=== PATIENT | female | born 1945 | race American Indian/Alaskan Native ===

== ENCOUNTER 2018-02-02 12:14 | Inpatient (IN) | payer MEDICARE ==
[2018-02-02] MEDS ORDERED: ASPIRIN PO ONE (15:20)
[2018-02-02 15:39] LABS: Basophils % (Auto) 0.6 % (0.0-1.8); Eosinophils # (Auto) 0.1 K/mm3 (0.0-0.4); Eosinophils % (Auto) 2.3 % (0.0-4.3); Hematocrit 38.9 % (30.3-42.9); Hemoglobin 12.6 gm/dl (10.1-14.3); Lymphocytes # (Auto) 0.8 K/mm3 (1.2-5.4); Lymphocytes % (Auto) 16.6 % (13.4-35.0); Mean Corpuscular HGB Conc 33 % (30-34); Mean Corpuscular Hemoglobin 27 pg (28-32); Mean Corpuscular Volume 83 fl (79-97); Monocytes # (Auto) 0.7 K/mm3 (0.0-0.8); Monocytes % (Auto) 14.6 % (0.0-7.3); Platelet Count 231 K/mm3 (140-440); Red Blood Count 4.67 M/mm3 (3.65-5.03); Red Cell Distribution Width 14.9 % (13.2-15.2)
[2018-02-02 15:47] LABS: INR 1.06 (0.87-1.13)
[2018-02-02 15:48] LABS: BUN/Creatinine Ratio 11; Blood Urea Nitrogen 10 mg/dL (7-17); Calcium 8.8 mg/dL (8.4-10.2); Hemolysis Index 6; Partial Thromboplastin Time 31.4 Sec. (24.2-36.6)
--- NOTE | 2018-02-02 16:05 | History and Physical Report ---
History of Present Illness Chief complaint: My chest hurts History of present illness: 72 YO Female with DM, HTN, OA, Mitral Valve Prolapse presents to ED for evaluation. Pt states that she has experienced pain in her chest for the past 3 days with persistent symptoms over the same time frame. Pt states that pain in 4 -6/10, substernal, nonradiating, worse with exertion, relieved with rest, associated with shortness of breath. Pt denies fever, chills, palpitations, NVD , Syncope, unilateral leg swelling, calf pain, BRBPR, productive cough, unintentional weight loss, night sweats. Pt seen and evaluated in ED and found to have Angina and symptoms consistent with Diastolic CHF. Pt admitted to telemetry. Cardiology consulted in ED. Past History Past Medical History: arthritis, diabetes, hypertension Past Surgical History: appendectomy Social history: single Family history: diabetes, hypertension Medications and Allergies Allergies Allergy/AdvReac Type Severity Reaction Status Date / Time cefuroxime [From Ceftin] Allergy Unknown Verified 02/02/18 12:48 meloxicam Allergy Unknown Verified 02/02/18 12:48 Home Medications Medication Instructions Recorded Confirmed Last Taken Type Amitriptyline [Elavil] 10 mg PO QHS 02/02/18 02/02/18 02/02/18 History Ascorbic Acid [Vitamin C] 1,000 mg PO DAILY 02/02/18 02/02/18 02/02/18 History Aspirin [Adult Low Dose Aspirin EC] 81 mg PO DAILY 02/02/18 02/02/18 02/02/18 History Calcium Carbonate/Vitamin D3 1 each PO BID 02/02/18 02/02/18 02/02/18 History [Caltrate 600 + D Soft Chew Tab] Folic Acid [Folvite] 1 mg PO QDAY 02/02/18 02/02/18 02/02/18 History Methotrexate(Dose Weekly Only) 2.5 mg PO QWEEK 02/02/18 02/02/18 02/02/18 History Multivitamin [Multiple Vitamins] 1 each PO DAILY 02/02/18 02/02/18 02/02/18 History Simvastatin [Zocor TAB] 10 mg PO QHS 02/02/18 02/02/18 02/02/18 History Verapamil HCl [Verapamil ER] 120 mg PO DAILY 02/02/18 02/02/18 02/02/18 History metFORMIN [Glucophage] 500 mg PO QDAY 02/02/18 02/02/18 02/02/18 History Review of Systems Constitutional: no weight loss, no weight gain, no fever, no chills Ears, nose, mouth and throat: no ear pain, no ear discharge, no tinnitis, no decreased hearing, no nose pain, no nasal congestion Breasts: no change in shape, no swelling, no mass Cardiovascular: chest pain, shortness of breath, no orthopnea, no dyspnea on exertion, no paroxysmal nocturnal dyspnea Respiratory: no cough, no cough with sputum, no excessive sputum, no hemoptysis , no shortness of breath Gastrointestinal: no abdominal pain, no nausea, no vomiting, no diarrhea, no constipation Genitourinary Female: no pelvic pain, no flank pain, no menorrhagia, no dysuria , no urinary frequency, no urgency Rectal: no pain, no incontinence, no bleeding Musculoskeletal: no neck stiffness, no neck pain, no shooting arm pain, no arm numbness/tingling, no low back pain, no shooting leg pain Integumentary: no rash, no pruritis, no redness, no sores, no wounds, no jaundice Neurological: no head injury, no transient paralysis, no paralysis, no weakness , no parathesias, no numbness, no tingling Psychiatric: no anxiety, no memory loss, no change in sleep habits, no sleep disturbances, no insomnia, no hypersomnia, no change in appetite Endocrine: no cold intolerance, no heat intolerance, no polyphagia, no excessive thirst, no polydipsia, no polyuria Hematologic/Lymphatic: no easy bruising, no easy bleeding, no lymphadenopathy, no lymphedema Allergic/Immunologic: no urticaria, no allergic rhinitis, no wheezing, no persistent infections, no anaphylaxis Exam - Constitutional Vitals: Temp Pulse Resp BP Pulse Ox 99.2 F 111 H 18 120/80 96 02/02/18 12:44 02/02/18 12:44 02/02/18 12:44 02/02/18 12:44 02/02/18 12:44 General appearance: Present: mild distress - EENT Eyes: Present: PERRL ENT: hearing intact, clear oral mucosa - Neck Neck: Present: supple, normal ROM - Respiratory Respiratory effort: normal Respiratory: bilateral: diminished - Cardiovascular Heart Sounds: Present: S1 & S2. Absent: rub, click - Extremities Extremities: pulses symmetrical, No edema Extremity abnormal: edema Peripheral Pulses: within normal limits - Abdominal General gastrointestinal: Present: soft, non-tender, non-distended, normal bowel sounds Female genitourinary: Present: normal - Integumentary Integumentary: Present: clear, warm, dry - Musculoskeletal Musculoskeletal: gait normal, strength equal bilaterally - Psychiatric Psychiatric: appropriate mood/affect, intact judgment & insight - Neurologic Neurologic: CNII-XII intact, moves all extremities Results - Labs CBC & Chem 7: 02/02/18 15:25 02/02/18 15:25 Labs: Abnormal lab results 02/02/18 02/02/18 Range/Units 15:25 15:25 MCH 27 L (28-32) pg [place] % (Auto) 14.6 H (0.0-7.3) % Lymph # 0.8 L (1.2-5.4) K/mm3 Glucose 114 H (65-100) mg/dL Assessment and Plan - Patient Problems (1) ACS (acute coronary syndrome) Current Visit: Yes Status: Acute Plan to address problem: serial cardiac enzymes, ekg, echo, morphine, supplemental oxygen, nitro tabs, aspirin, cardiology consulted. (2) Diabetes Current Visit: Yes Status: Acute Plan to address problem: consistent carbohydrate diet, insulin, accu check (3) HTN (hypertension) Current Visit: Yes Status: Acute Qualifiers: Hypertension type: essential hypertension Qualified Code(s): I10 - Essential (primary) hypertension Plan to address problem: monitor BP q shift, continue antihypertensive therapy (4) Diastolic CHF Current Visit: Yes Status: Acute Qualifiers: Heart failure chronicity: acute Qualified Code(s): I50.31 - Acute diastolic (congestive) heart failure Plan to address problem: Strict I/O, daily weight, monitor uop q shift, Echo, cardiology consulted, supplemental oxygen, (5) DVT prophylaxis Current Visit: Yes Status: Acute Plan to address problem: SCD to BLE while in bed
[2018-02-02] MEDS ORDERED: PROVENTIL IH PRN (16:07)
[2018-02-02] MEDS ORDERED: TYLENOL PO PRN (16:07)
[2018-02-02] MEDS ORDERED: MORPHINE IV PRN (16:07)
[2018-02-02] MEDS ORDERED: NITROSTAT SL PRN (16:07)
[2018-02-02] MEDS ORDERED: SODIUM CHLORIDE FLUSH SYRINGE 10 ML IV PRN ×2 (16:07)
[2018-02-02] MEDS ORDERED: ZOFRAN IV PRN (16:07)
[2018-02-02] MEDS ORDERED: BABY ASPIRIN PO STA (16:07)
--- NOTE | 2018-02-02 16:25 | Emergency Department Report ---
ED Chest Pain HPI - General Chief Complaint: Chest Pain Stated Complaint: CHEST PAIN Time Seen by Provider: 02/02/18 15:03 Source: patient Mode of arrival: Ambulatory Limitations: No Limitations - History of Present Illness Initial Comments: Patient is a 72-year-old -[place] female with past history of diabetes and hypertension who presented with 3 days of chest pain with exertion. Patient states when she walks or moves she starts getting chest pain. This is improved with rest. Patient states that it is associated with shortness of breath. Patient denies any cough. Patient does state that sometimes feels like her heart is racing. Patient denies any nausea vomiting diarrhea abdominal pain at this time. - Related Data Allergies Allergy/AdvReac Type Severity Reaction Status Date / Time cefuroxime [From Ceftin] Allergy Unknown Verified 02/02/18 12:48 meloxicam Allergy Unknown Verified 02/02/18 12:48 Heart Score - HEART Score History: Highly suspicious EKG: Non-specific Age: > 65 Risk factors: 1-2 risk factors Troponin: < normal limit HEART Score: 6 ED Review of Systems ROS: Stated complaint: CHEST PAIN Other details as noted in HPI Comment: All other systems reviewed and negative ED Past Medical Hx - Past Medical History Hx Hypertension: Yes Hx Diabetes: Yes Hx Arthritis: Yes - Surgical History Hx Appendectomy: Yes Additional Surgical History: Rt total hip,left ulnar nerve relocation, lumbar lamenectomy,hysterectomy,right hand trigger finger release,right shoulder - Social History Smoking Status: Never Smoker Substance Use Type: None ED Physical Exam - General Limitations: No Limitations General appearance: alert, in no apparent distress - Head Head exam: Present: atraumatic, normocephalic - Eye Eye exam: Present: normal appearance - ENT ENT exam: Present: mucous membranes moist - Neck Neck exam: Present: normal inspection - Respiratory Respiratory exam: Present: normal lung sounds bilaterally. Absent: respiratory distress, wheezes, rales, rhonchi - Cardiovascular Cardiovascular Exam: Present: regular rate, normal rhythm. Absent: systolic murmur, diastolic murmur, rubs, gallop - GI/Abdominal GI/Abdominal exam: Present: soft, normal bowel sounds. Absent: distended, tenderness, guarding, rebound, rigid - Extremities Exam Extremities exam: Present: normal inspection - Back Exam Back exam: Present: normal inspection - Neurological Exam Neurological exam: Present: alert, oriented X3 - Psychiatric Psychiatric exam: Present: normal affect, normal mood - Skin Skin exam: Present: warm, dry, intact, normal color. Absent: rash ED Course Vital Signs 02/02/18 12:44 Temperature 99.2 F Pulse Rate 111 H Respiratory 18 Rate Blood Pressure 120/80 O2 Sat by Pulse 96 Oximetry AQUILINO score - Aquilino Score Age > 65: (1) Yes Aspirin use within the Past 7 Days: (1) Yes 3 or more CAD Risk Factors: (1) Yes 2 or more Angina events in past 24 hrs: (1) Yes Known CAD with more than 50% Stenosis: (0) No Elevated Cardiac Markers: (0) No ST Deviation Greater than 0.5mm: (0) No AQUILINO Score: 4 ED Medical Decision Making - Lab Data Result diagrams: 02/02/18 15:25 02/02/18 15:25 Lab Results 02/02/18 02/02/18 02/02/18 Range/Units 15:25 15:25 15:25 WBC 4.6 (4.5-11.0) K/mm3 RBC 4.67 (3.65-5.03) M/mm3 Hgb 12.6 (10.1-14.3) gm/dl Hct 38.9 (30.3-42.9) % MCV 83 (79-97) fl MCH 27 L (28-32) pg MCHC 33 (30-34) % RDW 14.9 (13.2-15.2) % Plt Count 231 (140-440) K/mm3 Lymph % (Auto) 16.6 (13.4-35.0) % [place] % (Auto) 14.6 H (0.0-7.3) % Eos % (Auto) 2.3 (0.0-4.3) % Baso % (Auto) 0.6 (0.0-1.8) % Lymph # 0.8 L (1.2-5.4) K/mm3 [place] # 0.7 (0.0-0.8) K/mm3 Eos # 0.1 (0.0-0.4) K/mm3 Baso # 0.0 (0.0-0.1) K/mm3 Seg Neutrophils % 65.9 (40.0-70.0) % Seg Neutrophils # 3.0 (1.8-7.7) K/mm3 PT 14.4 (12.2-14.9) Sec. INR 1.06 (0.87-1.13) APTT 31.4 (24.2-36.6) Sec. Sodium 138 (137-145) mmol/L Potassium 4.0 (3.6-5.0) mmol/L Chloride 100.8 (98-107) mmol/L Carbon Dioxide 24 (22-30) mmol/L Anion Gap 17 mmol/L BUN 10 (7-17) mg/dL Creatinine 0.9 (0.7-1.2) mg/dL Estimated GFR > 60 ml/min BUN/Creatinine Ratio 11 % Glucose 114 H (65-100) mg/dL Calcium 8.8 (8.4-10.2) mg/dL Troponin T < 0.010 (0.00-0.029) ng/mL - EKG Data -: EKG Interpreted by Me - EKG Data Interpretation: other (EKG shows sinus tachycardia 102 normal axis normal intervals and no ST segment elevations or depressions, interpretation is 12:30) - Radiology Data Radiology results: report reviewed - Medical Decision Making Patient is a 72-year-old asthmatic female is presenting with chest pain with exertion as well as shortness of breath. Patient does have elevated heart score and will be admitted to the hospitalist service to Dr. Orellana at this time. Critical Care Time: Yes Critical care time in (mins) excluding proc time.: 30 Critical care attestation.: If time is entered above; I have spent that time in minutes in the direct care of this critically ill patient, excluding procedure time. ED Disposition Clinical Impression: Unstable angina Disposition: OP ADMIT IP TO THIS HOSP Is pt being admited?: Yes Does the pt Need Aspirin: No Condition: Stable Instructions: Angina (ED) Referrals: PRIMARY CARE, [Primary Care Provider] - 3-5 Days
--- NOTE | 2018-02-02 16:27 | XRay Report ---
FINAL REPORT EXAM: XR CHEST ROUTINE 2V HISTORY: Chest Pain TECHNIQUE: Chest two views PRIORS: None. FINDINGS: Cardiac and mediastinal contours are unremarkable There is diffuse bilateral pulmonary interstitial prominence which may be acute or chronic finding. No pleural effusion is identified. There is some prominence of the pulmonary vasculature. Cardiac silhouette is within normal range for size. IMPRESSION: Pulmonary vascular congestion and interstitial prominence. Suspect CHF
[2018-02-02 16:36] LABS: Chol/HDL Ratio 3.78 %
[2018-02-02] MEDS ORDERED: ASPIRIN ONE (18:20)
--- NOTE | 2018-02-02 20:43 | Cat Scan Report ---
FINAL REPORT PROCEDURE: CT ANGIO CHEST TECHNIQUE: Computerized tomographic angiography of the chest was performed after the IV injection of iodinated nonionic contrast including image processing. The image data was postprocessed using 2-dimensional multiplanar reformatted (MPR) and 3-dimensional (MIP and/or volume rendered) techniques. HISTORY: dypsnea COMPARISON: No prior studies are available for comparison. FINDINGS: Heart and pericardium: Normal. Thoracic aorta: There is no thoracic aortic aneurysm or dissection.. Pulmonary vasculature: There is no pulmonary embolism.. Lymph nodes: No enlarged thoracic lymph nodes. Lungs: Lungs are well-expanded. There are chronic fibro emphysematous changes. There are no acute infiltrates.. Pleural space: No effusion, thickening, or pneumothorax. Musculoskeletal structures: No significant abnormality. Upper abdominal structures: No significant abnormality. IMPRESSION: There is no thoracic aortic aneurysm or dissection.. There is no pulmonary embolism.. Lungs are well-expanded. There are chronic fibro emphysematous changes. There are no acute infiltrates.. There is no pleural effusion or pneumothorax.
[2018-02-02] MEDS ORDERED: NON-FORMULARY (Calcium Carbonate/Vitamin D3 [Caltrate 600 + D Soft Chew Tab] 1 EACH) PO SCH (22:00)
[2018-02-02] MEDS ORDERED: NON-FORMULARY (Simvastatin 10 MG) PO SCH (22:00)
[2018-02-02] MEDS ORDERED: ELAVIL PO SCH (22:00)
[2018-02-02] MEDS ORDERED: PRAVACHOL PO SCH (22:00)
[2018-02-02] MEDS: PEPCID PO SCH (22:44)
[2018-02-02] MEDS: SODIUM CHLORIDE FLUSH SYRINGE 10 ML IV SCH (22:46)
[2018-02-03] MEDS ORDERED: LEXISCAN IV ONE ×2 (08:10→08:14)
[2018-02-03] MEDS ORDERED: NACL 0.9% 500 ML 0 ML ONE (09:09)
[2018-02-03] MEDS ORDERED: HALFPRIN EC PO SCH (10:00)
[2018-02-03] MEDS ORDERED: VITAMIN C PO SCH (10:00)
[2018-02-03] MEDS ORDERED: CALTRATE PLUS PO SCH (10:00)
[2018-02-03] MEDS ORDERED: NON-FORMULARY (Ascorbic Acid [Vitamin C] 1,000 MG) PO SCH (10:00)
[2018-02-03] MEDS ORDERED: NON-FORMULARY (Multivitamin [Multiple Vitamins] 1 EACH) PO SCH (10:00)
[2018-02-03] MEDS ORDERED: THERAGRAN Tab PO SCH (10:00)
[2018-02-03] MEDS ORDERED: FOLVITE PO SCH (10:00)
[2018-02-03] MEDS ORDERED: CALAN SR PO SCH (10:00)
[2018-02-03] MEDS ORDERED: METHOTREXATE(DOSE WEEKLY ONLY) PO SCH (11:54)
[2018-02-03] MEDS: PEPCID PO SCH (11:55)
[2018-02-03] MEDS: SODIUM CHLORIDE FLUSH SYRINGE 10 ML IV SCH (15:20)
[2018-02-03 16:50] VITALS: BP 110/69
--- NOTE | 2018-02-03 16:51 | Progress Note ---
Subjective Date of service: 02/03/18 Objective - Constitutional Vitals: Vital Signs - 12hr 02/03/18 02/03/18 02/03/18 07:27 08:00 08:31 Temperature 99.7 F H Pulse Rate 96 H 101 H 101 H Respiratory 20 Rate Blood Pressure 117/81 Blood Pressure [Right] O2 Sat by Pulse 96 Oximetry 02/03/18 02/03/18 02/03/18 08:36 09:03 09:04 Temperature Pulse Rate 96 H 107 H 107 H Respiratory Rate Blood Pressure 115/76 128/86 94/62 Blood Pressure [Right] O2 Sat by Pulse Oximetry 02/03/18 02/03/18 02/03/18 09:05 09:06 09:07 Temperature Pulse Rate 105 H 100 H 40 L Respiratory Rate Blood Pressure 92/64 86/64 78/59 Blood Pressure [Right] O2 Sat by Pulse Oximetry 02/03/18 02/03/18 02/03/18 09:08 11:57 16:18 Temperature 97.6 F Pulse Rate 66 97 H Respiratory 18 Rate Blood Pressure 78/59 125/84 110/69 Blood Pressure [Right] O2 Sat by Pulse 94 Oximetry 02/03/18 16:49 Temperature 100.3 F H Pulse Rate 97 H Respiratory 18 Rate Blood Pressure Blood Pressure 110/69 [Right] O2 Sat by Pulse 94 Oximetry - Labs CBC & Chem 7: 02/02/18 15:25 02/02/18 15:25
--- NOTE | 2018-02-03 17:42 | Discharge Summary ---
Providers - Providers Date of Admission: 02/02/18 17:38 Date of discharge: 02/03/18 Attending physician: TANNER ADAN 02/02/18 Consult to Cardiac Rehabilitation [CONS] Routine Reason For Exam: Phase I 02/02/18 16:07 Consult to Cardiology [CONS] Routine Consulting Provider: DONNA ALVAREZ Reason For Exam: acs Primary care physician: SUPERVISOR TOWER Hospitalization Condition: Stable Disposition: DC-30 STILL A PATIENT Exam - Constitutional Vitals: Temp Pulse Resp BP Pulse Ox 100.3 F H 97 H 18 110/69 95 02/03/18 16:49 02/03/18 16:49 02/03/18 16:49 02/03/18 16:49 02/03/18 17:06 Plan Follow up with: PRIMARY CAREMD [Primary Care Provider] - 3-5 Days
--- NOTE | 2018-02-03 19:12 | Consultation ---
HISTORY OF PRESENT ILLNESS: The patient is a 72-year-old female with multiple medical problems including history of mitral valve prolapse, diabetes, hypertension, and rheumatoid arthritis. For about 3 days, she has had symptoms that included exertional dyspnea and precordial chest discomfort, particularly with inclines, the symptoms would resolve with rest. There is no claudication, ankle edema, significant palpitations or dizziness. She did not describe any infectious symptoms or pulmonary history. When asked about pollen, she states that she was wondering if the pollen could have affected her breathing. She is active. She states her blood pressure and diabetes have been under control. She describes a heart catheterization about 13 years ago that was negative and she was told at that time that she had coronary spasm. She states that her symptoms now are somewhat similar to then. There has been no significant mitral regurgitation. There is no history of congestive heart failure. PAST MEDICAL HISTORY: ALLERGIES: MELOXICAM and CEFTIN. MEDICATIONS: See the nurse's list. SOCIAL HISTORY: Smoking: None. Alcohol: No heavy use. FAMILY HISTORY: Positive for heart disease. PAST SURGICAL HISTORY: Operations: Appendectomy, right total hip, left ulnar nerve relocation, lumbar laminectomy, hysterectomy, trigger finger, right shoulder. REVIEW OF SYSTEMS: No GI, pulmonary or infectious symptoms. No sleep disorders or skin disorders. PHYSICAL EXAMINATION: GENERAL: Well-developed, well-nourished, no acute distress. HEENT: Alert, oriented and cooperative, mental status normal. EYES, NOSE, AND THROAT: Unremarkable. NECK: Reveals mild JVD. There are no bruits. Neck is supple, no masses. LUNGS: A few dry crackles at the lung bases. No rales, no rhonchi. No labored respirations. HEART: Regular rhythm, grade 3 systolic murmur, S4 gallop. ABDOMEN: Soft, nontender, no masses. EXTREMITIES: No cyanosis, clubbing, or edema. Peripheral pulses are intact. NEUROLOGIC: Symmetrical. SKIN: Clear. IMPRESSION: 1. Symptoms consistent with angina on exertion: Stress thallium study is negative. There is a remote history of coronary spasm causing similar symptoms. She might have small vessel disease that is not evident on a stress test. I would recommend aggressive antianginal therapy and only consider heart catheterization if the symptoms are refractory, notes that she is visiting here from [place]. 2. Shortness of breath and abnormal chest x-ray: Consider mild pulmonary edema, allergic symptoms, pneumonia, or rheumatoid lung. 3. Hyperlipidemia. 4. Hypertension. 5. Note that she had transient hypotension in hospital. 6. Diabetes. 7. Rheumatoid arthritis. PLAN: Antianginal therapy. Recommend followup chest x-ray and if not clear, consider pulmonary consultation. Thank you for this consultation. ADDENDUM: Note with a history of mitral valve prolapse and systolic murmur, the echo will be reviewed this afternoon. JOB# [id number] MYLENE/NTS
--- NOTE | 2018-02-03 22:10 | Treadmill Report ---
THALLIUM STRESS TEST LEFT VENTRICLE: Left ventricular chamber size is within normal. Perfusion study demonstrates homogeneous uptake of the tracer in all segments, no significant perfusion defects identified. Gated analysis demonstrates normal left ventricular systolic function, ejection fraction of 73%. CONCLUSION: Normal myocardial perfusion study. JOB# [id number] CA/NTS
[2018-02-09] MEDS ORDERED: METHOTREXATE(DOSE WEEKLY ONLY) PO SCH (10:00)
== END 2018-02-03 18:33 | disposition home or self-care (01) | DRG 311 ==
LOC: ED 12:14 → 4A 17:38
PROVIDERS: ADMIT Internal Medicine; ATTEND Internal Medicine
DX: I20.0 Unstable angina (principal); I50.30 Unspecified diastolic (congestive) heart failure; E11.9 Type 2 diabetes mellitus without complications; I11.0 Hypertensive heart disease with heart failure; M06.9 Rheumatoid arthritis, unspecified; E78.5 Hyperlipidemia, unspecified; I34.1 Nonrheumatic mitral (valve) prolapse; Z90.49 Acquired absence of other specified parts of digestive tract; Z82.49 Family history of ischemic heart disease and other diseases of the circulatory system; Z83.3 Family history of diabetes mellitus; Z88.8 Allergy status to other drugs, medicaments and biological substances; Z79.84 Long term (current) use of oral hypoglycemic drugs; Z79.82 Long term (current) use of aspirin
CPT/HCPCS: 36415; 71046; 71275; 78452; 80048; 80061; 83880; 84484; 85025; 85379; 85610; 85730; 87040; 87116; 87430; 93005; 93010; 93017; 93306; A9270-GY; A9502; J2785; J7040; J8610; Q9967